=== PATIENT | female | born 1950 | race Caucasian/White ===

== ENCOUNTER 2016-11-18 12:24 | Emergency (ER) | payer OTHER ==
[~2016-11-18] VITALS: Ht 175.3 cm; Wt 99.8 kg
--- NOTE | ~2016-11-18 | EKG ---
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: dav : 1950 Requested By: Ghazala Winslow Order Number: [id number] MD: Valentino Roger Measurements Intervals [place] Rate: 72 P: 3 MI: 172 QRS: 53 QRSD: 122 T: 22 QT: 428 QTc: 469 Interpretive Statements Sinus rhythm Nonspecific intraventricular conduction delay Inferior infarct, old Compared to ECG 02/21/2016 05:18:14 Intraventricular conduction delay now present Myocardial infarct finding now present T-wave abnormality no longer present Electronically Signed On 11-19-2016 13:29:20 CDT by Valentino Roger [email or web address] <ELECTRONICALLY SIGNED> By: Valentino Roger MD 11/19/16 1329 [id number] [id number] Valentino Roger MD /JESSICA
[~2016-11-18 12:24] MED LIST: ACCUNEB SO1.25 MG/1 INH; ACEPHEN650 M1 RECTAL; AMLODIPINE BESY10 MG PO; ASPIR 8181 MG PO; ATIVAN0.5 MG; ATIVAN0.5 MG PO; AZITHROMYCIN 2250 MG PO; BACLOFEN20 MG PO; BENTYL 20 MG TA20 M1 PO; BIOFREEZE118 ML TOP; BUPROPION HCL150 M1 PO; CALMOSEPTINE OI71 GM TOP; CARBIDOPA-LEVO1 EAC9 PO; CELEBREX 200 M200 M1 PO; CHLORHEXIDINE118 ML PO; CLEOCIN HCL150 MG PO; ENOXAPARIN40 MG/0.1 SUBQ; GABAPENTIN 100100 MG; GABAPENTIN800 M1 PO; IPRAT-ALBUT 0.5-3 ML INH; KLOR-CON 1010 MEQ PO; LANTUS100 UNIT/M SUBQ; LASIX 40 MG TAB40 M2 PO; LEVEMIR100 UNIT/1; LEVOTHYROXIN0.025 MG PO; LIQUITEARS15 ML OP; LISINOPRIL2.5 MG PO; LOPRESSOR50 PO; MELATONIN3 MG PO; MILK OF MA2400 MG/10; MIRALAX17 GM PO; MYLANTA PO; NEURONTIN600 MG PO; NORVASC10 MG PO; NOVOLIN R100 UNIT/1 IJ; NOVOLOG FL100 UNIT/M; NOVOLOG100 UNIT/1 SUBQ; NYAMYC15 GM TOP; NYSTATIN 1100000 U/M; OMEPRAZOLE 20 M20 MG PO; ORAJEL TOP; OXYCODONE HCL 55 MG; OXYCODONE HCL 55 MG PO; OXYCONTIN10 M1; OXYCONTIN20 M1 PO; OXYCONTIN30 MG PO; PROTONIX40 M1 PO; RELPAX40 MG; REMERON15 MG PO; ROXICODONE30 M1 PO; SENOKOT-S1 TA1 PO; SKELAXIN 800 M800 M1; TAMSULOSIN HCL0.4 MG PO; TYLENOL325 MG PO; TYLENOL325 MG RECTAL; VITAMIN D1000 UNI1 PO
[2016-11-18 12:40] LABS: ABSOLUTE NEUTROPHILS 3.7 thou/uL (1.4-8.2); BASOPHILS 0.6 % (0.0-2.0); EOSINOPHILS 2.4 % (0.0-3.0); HEMATOCRIT 38.6 % (37.0-47.0); HEMOGLOBIN 13.2 gm/dL (12.0-15.0); LYMPHOCYTES 25.3 % (24.0-44.0); MCH 31.3 pg (26.0-34.0); MCHC 34.2 g/dL (28.0-37.0); MCV 91.5 fL (80.0-100.0); MONOCYTES 7.1 % (1.0-8.0); PLATELET COUNT 272 thou/uL (150-400); POLYS 64.6 % (36.0-66.0); RBC 4.21 mil/uL (4.20-5.00); RDW 13.5 % (10.5-14.5); WBC 5.8 thou/uL (4.0-11.0)
[2016-11-18 12:44] LABS: MANUAL DIFF NO
[2016-11-18 12:48] LABS: ANION GAP 6 mmol/L (7-16); BUN 16 mg/dL (7-18); CALCIUM 9.3 mg/dL (8.5-10.1); CHLORIDE 101 mmol/L (98-107); CO2 32 mmol/L (21-32); CREATININE 0.7 mg/dL (0.6-1.3); GLUCOSE 164 mg/dL (70-99); SODIUM 139 mmol/L (136-145)
[2016-11-18 13:08] LABS: NT-PRO BRAIN NAT PEPTIDE 316 pg/mL (<300); TROPONIN-I < 0.04 ng/mL (<0.04-0.07)
== END 2016-11-18 14:40 | disposition home or self-care (01) ==
LOC: ER 12:24
PROVIDERS: Emergency Medicine
DX: R07.89 Other chest pain (principal); I11.0 Hypertensive heart disease with heart failure; I50.9 Heart failure, unspecified; E11.9 Type 2 diabetes mellitus without complications; J44.9 Chronic obstructive pulmonary disease, unspecified; Z90.710 Acquired absence of both cervix and uterus; Z88.6 Allergy status to analgesic agent; Z88.5 Allergy status to narcotic agent; Z91.041 Radiographic dye allergy status; Z88.1 Allergy status to other antibiotic agents; Z88.2 Allergy status to sulfonamides; Z88.8 Allergy status to other drugs, medicaments and biological substances; F10.99 Alcohol use, unspecified with unspecified alcohol-induced disorder